=== PATIENT | female | born 1990 | race Caucasian/White ===

== ENCOUNTER → 2018-08-24 | Outpatient (CLI) | payer OTHER ==
--- NOTE | 2018-08-24 13:05 | KCIC ---
MRI Brain without contrast History: Frequent headaches, chronic migraine headaches since puberty, visual disturbance Technique: Multiplanar, multisequential noncontrast MR imaging was performed of the brain. Contrast: None Comparison: None Findings: There is no evidence of recent infarct or cytotoxic edema. The ventricles, sulci, and cisterns are within normal limits in size and configuration. There is no significant midline shift, intraaxial mass effect, or focal abnormal extra-axial fluid collection. There is no significant signal abnormality of the brain parenchyma. There is preservation of the major intracranial flow-voids at the skull base. The mastoid air cells are aerated. The cerebellar tonsils are normal in location. There is no significant abnormality of the pineal gland or pituitary gland. There is mild bilateral ethmoid air cell mucosal thickening, likely small mucous retention cyst of the left frontal ethmoidal recess. There is a large left maxillary sinus mucous retention cyst about 2.4 cm. There is deviation of the nasal septum to the left. There is mild fluid of the right mastoid air cells, limited pneumatization of the mastoid air cells. There is nonspecific heterogeneity of the marrow of the clivus which may be due to residual red marrow in a patient of this age. Impression: 1. There is no significant intracranial abnormality. 2. There is large left maxillary sinus mucous retention cyst and minimal ethmoid air cell mucosal thickening. There is minimal fluid of the right mastoid air cells. Electronically signed by: Ricardo Smith MD (08/24/2018 1:02 PM) [id number]
== END | disposition home or self-care (01) ==
LOC: KCIC MRI 12:00
PROVIDERS: ATTEND Family Medicine
DX: G43.909 Migraine, unspecified, not intractable, without status migrainosus (principal); J34.1 Cyst and mucocele of nose and nasal sinus; J34.2 Deviated nasal septum
CPT/HCPCS: 70551